=== PATIENT | male | born 1960 | race African-American/Black ===

== ENCOUNTER 2017-08-24 13:22 | Emergency (ER) | payer MEDICAID ==
[~2017-08-24] VITALS: Ht 180.3 cm; Wt 91.0 kg
[2017-08-24] MEDS ORDERED: ONDANSETRON HCL 4MG/2ML VIAL IV ONE ×2 (20:30→22:15)
[2017-08-24] MEDS ORDERED: SODIUM CHLORIDE 0.9% 1,000 ML IV ONE (20:30)
[2017-08-24 20:58] LABS: BASOPHILS % 0.4 % (0.0-2.0); HEMATOCRIT. 41.1 % (42.0-52.0); HEMOGLOBIN. 13.7 g/dL (14.0-18.0); LYMPHOCYTES % 7.5 % (20.0-50.0); MEAN CORPUSCULAR VOLUME 84.2 fL (80.0-94.0); MONOCYTES % 6.7 % (2.0-8.0); NEUTROPHILS % 85.4 % (40.0-76.0); PLATELET 192 x1000/uL (130-400); RED BLOOD CELL COUNT 4.88 mill/uL (4.7-6.1); RED CELL DISTRIBUTION WIDTH 12.8 % (11.6-14.6)
[2017-08-24 21:11] LABS: CARBON DIOXIDE 31 mEq/L (21-32); CHLORIDE 100 mEq/L (98-107)
[2017-08-24] MEDS ORDERED: KETOROLAC 30MG/ML VIAL IM ONE (21:15)
[2017-08-24] MEDS ORDERED: KETOROLAC 30MG/ML VIAL IV ONE (21:45)
[2017-08-24] MEDS ORDERED: CEFTRIAXONE 1 G PREMIX 50 ML IV ONE (22:15)
[2017-08-24] MEDS ORDERED: SODIUM CHLORIDE 0.9% 1000ML BAG (SEPSIS BOLUS) IV ONE (22:15)
[2017-08-24] MEDS ORDERED: DEXAMETHASONE 10 MG/ML VIAL IV ONE (22:15)
[2017-08-24] MEDS ORDERED: POTASSIUM CHLORIDE 20MEQ TABLET SR PO ONE (22:15)
[2017-08-25 01:09] LABS: COLOR URINE YELLOW (YELLOW); GLUCOSE URINE NEGATIVE (NEGATIVE); KETONES URINE 1+ (NEGATIVE); LEUKOCYTE ESTERASE URINE 1+ (NEGATIVE); NITRITE URINE NEGATIVE (NEGATIVE); OCCULT BLOOD URINE 3+ (NEGATIVE); PROTEIN URINE 3+ (NEGATIVE); SPECIFIC GRAVITY URINE 1.022 (1.005-1.030)
[2017-08-25 02:00] LABS: CLARITY URINE HAZY (CLEAR)
[2017-08-25 02:08] VITALS: BP 138/69
== END 2017-08-25 02:09 | disposition home or self-care (01) ==
LOC: ER 13:22
DX: J02.9 Acute pharyngitis, unspecified (principal); N39.0 Urinary tract infection, site not specified
CPT/HCPCS: 36415; 71010; 80053; 81001; 83605; 83690; 85025; 87040; 87070; 87086; 87430; 87804; 93005; 96361; 96365; 96375; 99285; J0696; J1100; J1885; J2405; J7030; Z7610

== ENCOUNTER 2022-03-16 04:37 | Emergency (ER) | payer MEDICAID, OTHER ==
[~2022-03-16] VITALS: Ht 180.3 cm; Wt 91.0 kg
[2022-03-16 04:58] VITALS: BP 147/58
[2022-03-16] MEDS ORDERED: ONDANSETRON HCL 4MG/2ML INJ IV STA (05:12)
[2022-03-16] MEDS ORDERED: SODIUM CHLORIDE 0.9% 1,000 ML IV ONE (05:15)
[2022-03-16 05:45] LABS: HEMATOCRIT. 43.2 % (42.0-52.0); HEMOGLOBIN. 14.1 g/dL (14.0-18.0); MEAN CORPUSCULAR HEMOGLOBIN 27.8 pg (28.0-32.0); MEAN CORPUSCULAR VOLUME 85.2 fL (80.0-94.0); MEAN PLATELET VOLUME 9.6 fl (7.4-10.4); PLATELET 190 x1000/uL (130-400); RED BLOOD CELL COUNT 5.07 mill/uL (4.7-6.1); RED CELL DISTRIBUTION WIDTH 12.9 % (11.6-14.6)
[2022-03-16 05:52] LABS: CHLORIDE 105 mEq/L (98-107)
[2022-03-16 06:15] LABS: PLATELET ESTIMATE NORMAL
[2022-03-16] MEDS ORDERED: DICYCLOMINE 10 MG/5 ML ORAL SYR PO STA (07:40)
[2022-03-16] MEDS ORDERED: VISCOUS LIDOCAINE 2% 15 ML UDC PO STA (07:40)
[2022-03-16] MEDS ORDERED: MAGNESIUM/ALUMINUM HYDROXIDE/SIMETHICONE 30ML UDC PO STA (07:40)
[2022-03-16] MEDS ORDERED: ONDANSETRON HCL 4MG/2ML INJ IV ONE (07:45)
[2022-03-16] MEDS ORDERED: ONDA4TAB5 MT (08:26)
== END 2022-03-16 08:59 | disposition home or self-care (01) ==
LOC: ER 04:37
DX: R10.13 Epigastric pain (principal); E78.00 Pure hypercholesterolemia, unspecified
CPT/HCPCS: 36415; 74176; 80053; 82962; 83690; 85025; 93005; 96361; 96374; 96376; 99285; J2405; J7030